=== PATIENT | male | born 1960 | race Caucasian/White ===

== ENCOUNTER 2019-07-11 11:14 | Emergency (ER) | payer MEDICARE, MEDICAID ==
[~2019-07-11] VITALS: Ht 185.4 cm; Wt 98.0 kg
[2019-07-11 11:45] VITALS: BP 136/91
== END 2019-07-11 12:20 | disposition home or self-care (01) ==
LOC: ER 11:14
DX: Z03.818 Encounter for observation for suspected exposure to other biological agents ruled out (principal); Z11.59 Encounter for screening for other viral diseases; F10.21 Alcohol dependence, in remission
CPT/HCPCS: 99283; U0003

== ENCOUNTER 2019-07-11 20:46 | Inpatient (IN) | payer MEDICARE, MEDICAID ==
[~2019-07-11] VITALS: Ht 185.4 cm; Wt 100.7 kg
[2019-07-11 22:51] LABS: CHLORIDE 108 mEq/L (98-107); PROTHROMBIN TIME 10.7 sec (9.6-11.0)
[2019-07-11 22:59] LABS: CLARITY URINE CLEAR (CLEAR); COLOR URINE YELLOW (YELLOW); KETONES URINE NEGATIVE (NEGATIVE); LEUKOCYTE ESTERASE URINE NEGATIVE (NEGATIVE); NITRITE URINE NEGATIVE (NEGATIVE); OCCULT BLOOD URINE NEGATIVE (NEGATIVE); PH URINE 5.5 (4.5-8.0); PROTEIN URINE NEGATIVE (NEGATIVE); SPECIFIC GRAVITY URINE 1.024 (1.005-1.030)
[2019-07-11 23:12] LABS: *AMPHETAMINES SCREEN URINE NEGATIVE (NEGATIVE); *BARBITURATES SCREEN URINE NEGATIVE (NEGATIVE); *BENZODIAZEPINES SCREEN URINE NEGATIVE (NEGATIVE); *COCAINE SCREEN URINE NEGATIVE (NEGATIVE)
[2019-07-11 23:13] LABS: CANNABINOID URINE SCREEN NEGATIVE (NEGATIVE); METHADONE URINE SCREEN NEGATIVE (NEGATIVE); OPIATES URINE SCREEN NEGATIVE (NEGATIVE); PHENCYCLIDINE URINE SCREEN NEGATIVE (NEGATIVE)
[2019-07-12] MEDS ORDERED: MORPHINE SULFATE 2 MG/ML CPJ (NOT FOR IM USE) IV PRN
[2019-07-12] MEDS ORDERED: CLONIDINE 0.1MG TABLET PO PRN
[2019-07-12] MEDS ORDERED: ACETAMINOPHEN 325MG TABLET PO PRN
[2019-07-12] MEDS ORDERED: ENOXAPARIN 40MG/0.4ML SYR SUBCUT SCH
[2019-07-12] MEDS ORDERED: ONDANSETRON HCL 4MG/2ML INJ IV PRN
[2019-07-12] MEDS ORDERED: DEXTROSE 50% WATER 50ML SYRINGE IV PRN
[2019-07-12] MEDS ORDERED: LORAZEPAM 2MG/ML CPJ IV PRN
[2019-07-12 00:03] LABS: BASOPHILS % 0.6 % (0.0-2.0); EOSINOPHILS % 2.2 % (0.0-5.0); LYMPHOCYTES % 33.1 % (20.0-50.0); MEAN CORPUSCULAR HEMOGLOBIN 29.7 pg (28.0-32.0); MEAN CORPUSCULAR VOLUME 87.2 fL (80.0-94.0); MEAN PLATELET VOLUME 8.5 fl (7.4-10.4); MONOCYTES % 7.4 % (2.0-8.0); NEUTROPHILS % 56.7 % (40.0-76.0); PLATELET 200 x1000/uL (130-400); RED BLOOD CELL COUNT 5.39 mill/uL (4.7-6.1); RED CELL DISTRIBUTION WIDTH 15.3 % (11.6-14.6)
[2019-07-12 02:40] VITALS: BP 149/92
[2019-07-12 06:45] LABS: BASOPHILS % 0.7 % (0.0-2.0); EOSINOPHILS % 2.8 % (0.0-5.0); HEMATOCRIT. 43.1 % (42.0-52.0); LYMPHOCYTES % 35.2 % (20.0-50.0); MEAN CORPUSCULAR HEMOGLOBIN 30.2 pg (28.0-32.0); MEAN CORPUSCULAR VOLUME 86.5 fL (80.0-94.0); MONOCYTES % 7.5 % (2.0-8.0); NEUTROPHILS % 53.8 % (40.0-76.0); PLATELET 174 x1000/uL (130-400); RED BLOOD CELL COUNT 4.98 mill/uL (4.7-6.1); RED CELL DISTRIBUTION WIDTH 15.2 % (11.6-14.6)
[2019-07-12 07:02] LABS: CHLORIDE 106 mEq/L (98-107)
[2019-07-12 08:00] VITALS: BP 140/97
[2019-07-12] MEDS: FOLIC ACID 1MG TABLET PO SCH (08:08)
[2019-07-12] MEDS ORDERED: ENOXAPARIN 30MG/0.3ML SYR SUBCUT SCH (09:00)
[2019-07-12 12:00] VITALS: BP 131/98
[2019-07-12 16:00] VITALS: BP 136/84
[2019-07-12 20:00] VITALS: BP 132/82
[2019-07-13] VITALS: BP 135/76
[2019-07-13 04:00] VITALS: BP 132/76
[2019-07-13 08:00] VITALS: BP 152/88
[2019-07-13] MEDS: FOLIC ACID 1MG TABLET PO SCH (08:41)
[2019-07-13] MEDS: ENOXAPARIN 40MG/0.4ML SYR SUBCUT SCH (08:41)
[2019-07-13] MEDS: AZITHROMYCIN 250 MG TABLET PO SCH (11:14)
[2019-07-13] MEDS: ALBUTEROL 6.7GM HFA INHALER ORI SCH ×2 (11:30→17:55)
[2019-07-13 11:48] VITALS: BP 136/91
[2019-07-13 15:51] VITALS: BP 122/86
[2019-07-13 20:00] VITALS: BP 146/91
[2019-07-13] MEDS: HYDROCODONE/ACETAMINOPHEN 5/325MG TABLET PO PRN (21:54)
[2019-07-14] VITALS: BP 128/80
[2019-07-14 04:00] VITALS: BP 121/84
[2019-07-14 08:00] VITALS: BP 125/81
[2019-07-14] MEDS: AZITHROMYCIN 250 MG TABLET PO SCH (08:35)
[2019-07-14] MEDS: FOLIC ACID 1MG TABLET PO SCH (08:35)
[2019-07-14] MEDS: ENOXAPARIN 40MG/0.4ML SYR SUBCUT SCH (08:36)
[2019-07-14 12:00] VITALS: BP 129/86
[2019-07-14] MEDS: ALBUTEROL 6.7GM HFA INHALER ORI SCH ×2 (14:32→17:15)
[2019-07-14 16:00] VITALS: BP 127/87
[2019-07-14 20:00] VITALS: BP 119/80
[2019-07-15] VITALS: BP 115/72
[2019-07-15 04:00] VITALS: BP 106/70
[2019-07-15] MEDS: ALBUTEROL 6.7GM HFA INHALER ORI SCH ×3 (06:42→11:56)
[2019-07-15 08:00] VITALS: BP 123/87
[2019-07-15] MEDS: AZITHROMYCIN 250 MG TABLET PO SCH (09:17)
[2019-07-15] MEDS: ENOXAPARIN 40MG/0.4ML SYR SUBCUT SCH (09:18)
[2019-07-15] MEDS: FOLIC ACID 1MG TABLET PO SCH (09:18)
[2019-07-15 10:21] VITALS: BP 123/87
[2019-07-15] MEDS ORDERED: ALBU18HF2 IH (10:36)
[2019-07-15 12:00] VITALS: BP 121/61
[2019-07-15 12:15] VITALS: BP 121/61
[2019-07-15] MEDS: HYDROCODONE/ACETAMINOPHEN 5/325MG TABLET PO PRN (12:15)
== END 2019-07-15 14:49 | disposition home or self-care (01) | DRG 871 ==
LOC: ER 20:46 → 7WST 23:49 → EDBEDREQTM 23:51 → EDBEDREQ 23:51 → EDBEDREQTM 07-12 00:22 → EDBEDREQSVC 07-12 00:22 → EDBEDREQDT 07-12 00:22 → ENRESERV 07-12 02:17
PROVIDERS: ADMIT Internal Medicine Nephrology; ATTEND Internal Medicine Nephrology
DX: A41.89 Other specified sepsis (principal); U07.1 COVID-19; J96.00 Acute respiratory failure, unspecified whether with hypoxia or hypercapnia; E87.8 Other disorders of electrolyte and fluid balance, not elsewhere classified; F10.21 Alcohol dependence, in remission; I10 Essential (primary) hypertension; B97.89 Other viral agents as the cause of diseases classified elsewhere; J20.8 Acute bronchitis due to other specified organisms
CPT/HCPCS: 36415; 71045; 80048; 80053; 80305; 81003; 83880; 85025; 99285; J1650; J2270; U0003-CS